=== PATIENT | female | born 1990 | race American Indian/Alaskan Native ===

== ENCOUNTER 2016-06-15 10:58 | Emergency (ER) | payer SELFPAY ==
--- NOTE | 2016-06-15 13:14 | Emergency Department Report ---
HPI - General Chief Complaint: Sore Throat Time Seen by Provider: 06/15/16 12:44 - HPI HPI: Patient is a 26-year-old female presents to ED complaining of waking up this morning with throat pain. Patient states history of GERD but is not on medication due to no insurance at the moment. Patient states her pain is worsened with swallowing and his state or liquid. Patient states she had a couple of episodes of vomiting this morning but resolved by the moment. Patient admits mild nausea, intermittent epigastric pain worsening since no medication for her GERD Patient denies fevers/chills/chest pain/shortness of breath/cough/rhinorrhea/ headache/blurred vision/diarrhea or constipation ED Past Medical Hx - Past Medical History Previous Medical History?: Yes Hx GERD: Yes Hx Asthma: Yes - Surgical History Past Surgical History?: No - Social History Smoking Status: Current Every Day Smoker Substance Use Type: None - Medications Home Medications: Home Medications Medication Instructions Recorded Confirmed Last Taken Type Acetamin/Codeine 120-12Mg/5 ml 5 ml PO TID PRN #60 ml 06/15/16 Unknown Rx [Tylenol/Codeine] Antacid [Alum-Mag Hydrox-Simeth 15 ml PO BID #100 ml 06/15/16 Unknown Rx [id number]/[id number]] Famotidine [Pepcid] 40 mg PO DAILY #30 tablet 06/15/16 Unknown Rx Metoclopramide [Reglan] 10 mg PO TID #20 tab 06/15/16 Unknown Rx Prednisone [predniSONE 5 mg (6-Day 5 mg PO .TAPER #1 tab.ds.pk 06/15/16 Unknown Rx Pack, 21 Tabs)] Sulfamethoxazole/Trimethoprim 1 each PO BID #14 tablet 06/15/16 Unknown Rx [Bactrim DS TAB] ED Review of Systems ROS: Stated complaint: SORE THROAT Other details as noted in HPI Constitutional: denies: chills, fever Eyes: denies: eye pain, eye discharge, vision change ENT: denies: ear pain, throat pain Respiratory: denies: cough, shortness of breath, wheezing Cardiovascular: denies: chest pain, palpitations Endocrine: no symptoms reported Gastrointestinal: denies: abdominal pain, nausea, diarrhea Genitourinary: denies: urgency, dysuria, discharge Musculoskeletal: denies: back pain, joint swelling, arthralgia Skin: denies: rash, lesions Neurological: denies: headache, weakness, paresthesias, confusion Psychiatric: denies: anxiety, depression Hematological/Lymphatic: denies: easy bleeding, easy bruising Physical Exam - Physical Exam Vital Signs: Vital Signs 06/15/16 11:39 Temperature 98.0 F Pulse Rate 71 Respiratory 18 Rate Blood Pressure 140/98 O2 Sat by Pulse 100 Oximetry Physical Exam: GENERAL: Alert and oriented x3, no apparent distress, Normal Gait, atraumatic. HEAD: Head is normocephalic and a-traumatic. EYES: Extra ocular muscles are intact. Pupils are equal, round, and reactive to light and accommodation. EARS: symetrical, atraumatic, non tender, ear canal clear and moderate cerumen, tympanic membrance non inflamed. gross auditory nml bilaterally. NOSE: Nose symetrical, Nontender,Nares appeared normal. MOUTH:Mouth is well hydrated and without lesions. Tonsils nonerythematous or swollen, Uvula midline, Tongue not elevated. Mucous membranes are moist. Posterior pharynx clear, no exudate or lesions. Patent airways. NECK: Supple. Non edematous, No carotid bruits. No lymphadenopathy or thyromegaly. No C-spine tenderness LUNGS: Symetrical with respiration, No wheezing, no rales or crackles, CTAB. HEART: S1, S2 present, regular rate and rhythm without murmur, no rubs, no gallops. ABDOMEN: No organomegaly was noted,Positive bowel sounds, soft, and non- distended. Tender to palpation at the epigastric region. . Nontender to palpation on all other Quadrants, NO CVA tenderness. NEUROLOGIC: No focal Deficit, Cranial nerves II through XII are grossly intact. No loss of sensation, PSYCHIATRIC: Mood is congruent with affect, denies suicidal or homicidal ideations. SKIN: Warm and dry, No lesions, No ulceration or induration present. ED Course Vital Signs 06/15/16 11:39 Temperature 98.0 F Pulse Rate 71 Respiratory 18 Rate Blood Pressure 140/98 O2 Sat by Pulse 100 Oximetry ED Medical Decision Making - Lab Data Result diagrams: 06/15/16 15:43 06/15/16 15:12 - Radiology Data Radiology results: report reviewed, image reviewed FINAL REPORT PROCEDURE: CT NECK W CON TECHNIQUE: Computerized axial tomography of the soft tissue neck was performed following the IV injection of iodinated nonionic contrast. HISTORY: throat pain COMPARISON: No prior studies are available for comparison. FINDINGS: Visualized portions of the paranasal sinuses and mastoid air cells are clear. Thyroid gland appears normal. The parotid and submandibular glands display no abnormalities. There is no retropharyngeal edema. The epiglottis is normal in size. No abnormalities are seen in the glottis. There may be mild prominence of the adenoid and palatine tonsils that could be mild tonsillitis. Parapharyngeal fat planes are preserved. A few small scattered reactive lymph nodes are seen in the neck. IMPRESSION: Possible mild changes of tonsillitis are present. Transcribed By: WW Dictated By: TWYLA SHEIKH JR, MD Electronically Authenticated By: TWYLA SHEIKH JR, MD Signed Date/Time: 06/15/16 6580 - Medical Decision Making 26-year-old female presents with tonsillitis/urinary tract infection ED course: Patient received a GI cocktail including Pepcid, MiraLAX, lidocaine, Zofran. Rapid strep test ordered, rapid strep test negative, CBC, BMP, urinalysis and UPT ordered. test negative CBC within normal limits. Within normal limits. Urinalysis positive for bacteria, discussed possibly viral tonsillitis and symptomatic relief CT of the soft tissue neck came back positive for tonsillitis no other problems see above Discussed all findings the patient. Take medication as discussed prescribed Discussed the patient will follow up with GI as well as primary care physician as referred for her GERD management. Discussed home medication of acid reflux management and to follow up with primary care for continuation with insurance is active Vital signs are normal patient states she feels a bit better Is in no acute distress Critical care attestation.: If time is entered above; I have spent that time in minutes in the direct care of this critically ill patient, excluding procedure time. ED Disposition Clinical Impression: UTI (urinary tract infection) Qualifiers: Urinary tract infection type: acute cystitis Hematuria presence: with hematuria Qualified Code(s): N30.01 - Acute cystitis with hematuria Acute tonsillitis Qualifiers: Pharyngitis/tonsillitis etiology: other specified organisms Qualified Code(s): J03.80 - Acute tonsillitis due to other specified organisms; J03.8 - Acute tonsillitis due to other specified organisms Acid reflux disease Qualifiers: Esophagitis presence: without esophagitis Qualified Code(s): K21.9 - Gastro- esophageal reflux disease without esophagitis Disposition: DISCHARGED TO HOME OR SELFCARE Is pt being admited?: No Does the pt Need Aspirin: No Condition: Stable Instructions: Diet for Ulcers and Gastritis (ED), Gastroesophageal Reflux Disease (ED), Urinary Tract Infection in Women (ED), Tonsillitis (ED) Prescriptions: Acetamin/Codeine 120-12Mg/5 ml [Tylenol/Codeine] 5 ml PO TID PRN #60 ml PRN Reason: Pain Antacid [Alum-Mag Hydrox-Simeth [id number]/5Ml] 15 ml PO BID #100 ml Famotidine [Pepcid] 40 mg PO DAILY #30 tablet Metoclopramide [Reglan] 10 mg PO TID #20 tab Prednisone [predniSONE 5 mg (6-Day Pack, 21 Tabs)] 5 mg PO .TAPER #1 tab.ds.pk Sulfamethoxazole/Trimethoprim [Bactrim DS TAB] 1 each PO BID #14 tablet Referrals: PRIMARY CAREMD [Primary Care Provider] - 3-5 Days KIMBERLY GARCIA MD [Referring] - 3-5 Days MICHELLE HERNANDEZ MD [Staff Physician] - 3-5 Days SMITH BELTRÁN MD [Referring] - 3-5 Days [facility] [Outside] - 3-5 Days Forms: Accompanied Note, Work/School Release Form(ED) Time of Disposition: 14:50
[2016-06-15] MEDS ORDERED: LIDOCAINE VISCOUS 2% PO ONE (13:31)
[2016-06-15] MEDS ORDERED: ALUM-MAG HYDROX-SIMETH 200-200-20MG/5ML PO ONE (13:31)
[2016-06-15] MEDS ORDERED: ZOFRAN ORAL LIQ PO ONE (13:32)
[2016-06-15] MEDS ORDERED: PEPCID PO ONE (13:32)
[2016-06-15] MEDS ORDERED: ZOFRAN ODT ONE (13:47)
[2016-06-15] MEDS ORDERED: ZOFRAN ODT PO ONE (14:00)
[2016-06-15 15:50] LABS: Basophils % (Auto) 0.6 % (0.0-1.8); Hematocrit 41.2 % (30.3-42.9); Hemoglobin 13.8 gm/dl (10.1-14.3); Mean Corpuscular HGB Conc 33 % (30-34); Mean Corpuscular Hemoglobin 33 pg (28-32); Mean Corpuscular Volume 98 fl (79-97); Platelet Count 205 K/mm3 (140-440); Red Blood Count 4.22 M/mm3 (3.65-5.03); Red Cell Distribution Width 12.9 % (13.2-15.2); White Blood Count 4.9 K/mm3 (4.5-11.0)
[2016-06-15] MEDS ORDERED: TYLENOL/CODEINE PO ONE (16:23)
[2016-06-15 16:47] LABS: Anion Gap 14 mmol/L; BUN/Creatinine Ratio 7.14; Blood Urea Nitrogen 5 mg/dL (7-17); Carbon Dioxide 30 mmol/L (22-30); Chloride 100.2 mmol/L (98-107); Glucose 91 mg/dL (65-100); Potassium 3.9 mmol/L (3.6-5.0); Sodium 140 mmol/L (137-145)
[2016-06-15] MEDS ORDERED: NACL ONE (16:47)
[2016-06-15 17:11] LABS: Bacteria,Urine 1+ /HPF (Negative); Bilirubin,Urine NEG (Negative); Blood,Urine LG (Negative); Ketones,Urine NEG (Negative); Leukocyte Esterase,Urine TR (Negative); Mucus,Urine 2+ /HPF; Nitrite,Urine NEG (Negative); Urobilinogen,Urine < 2.0 mg/dL (<2.0); WBC,Urine < 1.0 /HPF (0.0-6.0)
--- NOTE | 2016-06-15 17:57 | Cat Scan Report ---
FINAL REPORT PROCEDURE: CT NECK W CON TECHNIQUE: Computerized axial tomography of the soft tissue neck was performed following the IV injection of iodinated nonionic contrast. HISTORY: throat pain COMPARISON: No prior studies are available for comparison. FINDINGS: Visualized portions of the paranasal sinuses and mastoid air cells are clear. Thyroid gland appears normal. The parotid and submandibular glands display no abnormalities. There is no retropharyngeal edema. The epiglottis is normal in size. No abnormalities are seen in the glottis. There may be mild prominence of the adenoid and palatine tonsils that could be mild tonsillitis. Parapharyngeal fat planes are preserved. A few small scattered reactive lymph nodes are seen in the neck. IMPRESSION: Possible mild changes of tonsillitis are present.
[2016-06-15 18:48] VITALS: BP 142/80
== END 2016-06-15 18:47 | disposition home or self-care (01) ==
LOC: ED 10:58
DX: N30.01 Acute cystitis with hematuria (principal); J03.80 Acute tonsillitis due to other specified organisms; K21.9 Gastro-esophageal reflux disease without esophagitis; J45.909 Unspecified asthma, uncomplicated; F17.200 Nicotine dependence, unspecified, uncomplicated
CPT/HCPCS: 36415; 70491; 80048; 81001; 84703; 85025; 87116; 87430; 99284; Q9967; Q0162